=== PATIENT | male | born 1975 ===

== ENCOUNTER 2016-05-19 12:20 | Emergency (ER) | payer SELFPAY ==
[2016-05-19 12:59] VITALS: BP 139/84
--- NOTE | 2016-05-19 13:21 | UC ---
Hip/Pelvis Pain - HPI Summary HPI Summary: PT WITH INTERMITTENT LLQ ABDOMINAL PAIN FOR THE PAST YEAR. RADIATES TO LOW BACK. DOES NOT FEEL IT IS IN THE HIP JOINT. DENIES ANY INJURY. WORSE OVER THE PAST 6 MONTHS. FEELS A FULLNESS IN THE LEFT GROIN AREA. FEELS DEEP "LIKE THERE' S SOMETHING THERE". NO FEVER, NAUSEA DIARREA OR BLOOD PER RECTUM. NO URINARY SX. - History Of Current Complaint Chief Complaint: UCLowerExtremity Stated Complaint: HIP AND BACK PAIN Time Seen by Provider: 05/19/16 13:12 Hx Obtained From: Patient Onset/Duration: Gradual Onset, Still Present Timing: Constant Severity Initially: Moderate Severity Currently: Moderate Pain Intensity: 4 Pain Scale Used: 0-10 Numeric Location: Discrete At: - LLQ, Radiates To: - LOW BACK Character Of Pain: Dull, Aching Aggravating Factor(s): Other - PALPATION Alleviating Factor(s): Nothing Associated Signs And Symptoms: Positive: Abdominal Pain. Negative: Swelling, Redness, Bruising, Fever, Weakness, Dizziness, Syncope, Knee Pain - Allergies/Home Medications Allergies/Adverse Reactions: Allergies Allergy/AdvReac Type Severity Reaction Status Date / Time No Known Allergies Allergy Verified 05/19/16 12:47 Home Medications: Home Medications NK [No Home Medications Reported] 05/19/16 [History Confirmed 05/19/16] PMH/Surg Hx/FS Hx/Imm Hx Previously Healthy: Yes - Surgical History Surgical History: None - Family History Known Family History: Positive: Other - PROSTATE CANCER Negative: Hypertension, Diabetes - Social History Alcohol Use: None Substance Use Type: Marijuana Substance Use Comment - Amount & Last Used: Frequently Smoking Status (MU): Never Smoked Tobacco Review of Systems Constitutional: Negative Skin: Negative Respiratory: Negative Cardiovascular: Negative Gastrointestinal: Abdominal Pain - LLQ All Other Systems Reviewed And Are Negative: Yes Physical Exam Triage Information Reviewed: Yes Appearance: Well-Appearing, No Pain Distress, Well-Nourished Vital Signs: Initial Vital Signs Pulse 83 05/19/16 12:49 Resp 16 05/19/16 12:49 BP 139/84 05/19/16 12:49 Pulse Ox 97 05/19/16 12:49 Vital Signs Reviewed: Yes Eyes: Positive: Conjunctiva Clear ENT: Positive: Hearing grossly normal Neck: Positive: Supple Respiratory: Positive: No respiratory distress, No accessory muscle use Cardiovascular: Positive: Pulses Normal Abdomen Description: Positive: Nontender, Soft, Other: - MILD FULLNESS LEFT LOWER ABDOMINAL MUSCLES. NO MASS PALPATED. Negative: CVA Tenderness (R), CVA Tenderness (L), Distended, Guarding Musculoskeletal: Positive: No Edema Neurological: Positive: Alert Psychological: Positive: Normal Response To Family, Age Appropriate Behavior Skin: Negative: rashes Diagnostics - Radiology LIMITED LLQ ABD US Xray Interpretation: Positive (See Comments) - 1. DEBRIS WITHIN THE URINARY BLADDER. 2. MILDLY PROMINENT LEFT INGUINAL LYMPH NODES. Radiology Interpretation Completed By: Radiologist Hip Injury Course/Dx - Differential Dx/Diagnosis Provider Diagnoses: LLQ ABDOMINAL PAIN, NOS Discharge - Discharge Plan Condition: Stable Disposition: HOME Patient Education Materials: Lymphadenopathy (ED), Abdominal Pain (ED) Additional Instructions: YOUR ULTRASOUND TODAY SHOWED SOME MILDLY ENLARGED LEFT INGUINAL LYMPH NODES. THERE WAS SOME DEBRIS SEEN IN THE BLADDER BUT YOUR URINE TEST WAS ALSO UNREMARKABLE. FOLLOW-UP AT THE [facility] [place]. YOU WILL NEED FURTHER WORK- UP. GO TO THE ER WITHOUT FAIL IF YOUR SYMPTOMS WORSEN OR YOU DEVELOP FEVER, BLOOD IN THE URINE OR STOOL OR ANY OTHER CONCERNING SYMPTOMS. CALL THE NUMBER BELOW FOR ASSISTANCE IN ESTABLISHING WITH A PCP An additional resource available to assist in finding the appropriate physician for your health care needs is [facility] ([facility]). You may contact them by calling [phone].
--- NOTE | 2016-05-19 15:03 | RAD ---
INDICATION: Left lower quadrant pain. COMPARISON: There are no prior studies available for comparison. TECHNIQUE: Multiple real-time images of the pelvis and left inguinal region were obtained. FINDINGS: There is debris present dependently within the urinary bladder. There are bilateral ureteral jets present. No bladder wall thickening is seen. No free intraperineal fluid is noted. Images of the left inguinal region demonstrate mildly prominent lymph nodes. The largest measures 1.6 x 0.8 x 0.6 cm in size. IMPRESSION: 1. DEBRIS WITHIN THE URINARY BLADDER. 2. MILDLY PROMINENT LEFT INGUINAL LYMPH NODES.
== END 2016-05-19 15:14 | disposition home or self-care (01) ==
LOC: UCEAST 12:20
DX: R10.32 Left lower quadrant pain (principal); M54.5 Low back pain
CPT/HCPCS: 76705; 81002; 99202; G0463